=== PATIENT | female | born 1980 | race Caucasian/White ===

== ENCOUNTER 2017-01-17 20:11 | Emergency (ER) | payer OTHER ==
--- NOTE | 2017-01-17 21:00 | ED Physician Documentation ---
PD HPI SKIN - Stated complaint Stated Complaint: LT BREAST ABCESS - Chief complaint Chief Complaint: Wound - History obtained from History obtained from: Patient - History of Present Illness Timing - onset: Other (Previously healthy 36-year-old woman, 4 weeks and breast-feeding. Diagnosed with mastitis approximately 8 days ago on the left and on Keflex but worsening pain and body aches today without measured fevers.) Review of Systems Constitutional: reports: Chills. denies: Fever Nose: denies: Rhinorrhea / runny nose, Congestion Cardiac: denies: Chest pain / pressure, Palpitations Respiratory: denies: Dyspnea, Cough PD PAST MEDICAL HISTORY - Present Medications Home Medications: Ambulatory Orders Medication Instructions Recorded Confirmed Clindamycin [Cleocin] 300 mg PO Q6H 7 Days 01/17/17 - Allergies Allergies/Adverse Reactions: Allergies Allergy/AdvReac Type Severity Reaction Status Date / Time Sulfa (Sulfonamide AdvReac Rash Verified 01/17/17 20:27 Antibiotics) PD ED PE NORMAL - Vitals Vital signs reviewed: Yes - General General: Alert and oriented X 3, No acute distress - Derm Derm: Other (Done with Charles Colunga RN, TTP with clogged ducts supero lateral, no cellulitis) - Neuro Neuro: Alert and oriented X 3, Normal speech - Psych Psych: Normal mood, Normal affect Results - Vitals Vitals: Vital Signs - 24 hr 01/17/17 01/17/17 20:23 23:08 Temperature 37.1 C 36.5 C Heart Rate 106 H 91 Respiratory 17 16 Rate Blood Pressure 141/76 H 127/68 O2 Saturation 94 97 Oxygen O2 Source Room air - Rads (name of study) Breast sono Radiology: Prelim report reviewed (no abscess) PD MEDICAL DECISION MAKING - ED course ED course: The patient and family were counseled as to the diagnosis and need for follow- up. I counseled the patient with regard to signs and symptoms that would necessitate an urgent reevaluation in the emergency department. They understand they are welcome to return at any time if worse or if not improving as expected. This document was made in part using voice recognition software. While efforts are made to proofread this documents, sound alike and grammatical errors may occur. Departure - Departure Disposition: 01 Home, Self Care Clinical Impression: Mastitis Condition: Good Record reviewed to determine appropriate education?: Yes Instructions: ED Breast Infec Prescriptions: Clindamycin [Cleocin] 300 mg PO Q6H 7 Days Comments: Call your doctor to arrange a follow-up appointment, make the next available appointment. In the interim, return anytime if worse or if new symptoms develop. Discharge Date/Time: 01/17/17 23:25
[2017-01-17 23:09] VITALS: BP 127/68
[2017-01-17] MEDS ORDERED: CLINDAMYCIN 150 MG CAPSULE PO ONE (23:16)
[2017-01-17] MEDS ORDERED: CLINDAMYCIN 150 MG CAPSULE PO STA (23:16)
--- NOTE | 2017-01-17 23:20 | Ultrasound Preliminary Report ---
Exam: US Breast Unilateral Limited IMPRESSION: 1. No abscess. 2. No breast mass seen on the limited imaging. If symptoms persist, recommend return to the clinic fo r repeat imaging. [facility] SITE ID: [id number]
--- NOTE | 2017-01-17 23:23 | Ultrasound Report ---
EXAM: LEFT BREAST ULTRASOUND EXAM DATE: 01/17/2017 09:56 PM. CLINICAL HISTORY: Left breast abscess, eval for abscess. COMPARISON: None. TECHNIQUE: Color and grayscale imaging are required in the region of clinical concern. FINDINGS: No mass or loculated fluid collections are noted. Small left axillary node measures 1.1 x 0.7 cm. Indeterminate, hypoechoic regions are scattered throughout the left breast. Findings have a benign ap pearance. Chlorination Operator findings include: Left breast 4 cm from the nipple at the 4 o'clock position measuring 0.5 x 0.3 x 0.5 cm. Left breast 6 cm from the nipple at the 1 o'clock position measuring 0.5 x 0.3 x 0.5 cm. Left breast 6 cm from the nipple at the 2 o'clock position measuring 0.4 x 0.6 x 0.7 cm. IMPRESSION: 1. No abscess. 2. No breast mass seen on the limited imaging. If symptoms persist, recommend return to the clinic fo r repeat imaging. [facility] Referring Provider Line: [phone] SITE ID: [id number]
== END 2017-01-17 23:25 | disposition home or self-care (01) ==
LOC: ED 20:11
DX: O91.22 Nonpurulent mastitis associated with the puerperium (principal)
CPT/HCPCS: 76642; 99283; A9270